=== PATIENT | male | born 1940 | race Caucasian/White ===

== ENCOUNTER 2018-01-13 07:04 | Day surgery (SDC) | payer MEDICARE ==
[~2018-01-13] VITALS: Ht 198.1 cm; Wt 62.7 kg
[2018-01-13] MEDS ORDERED: IRBE150 PO (07:34)
[2018-01-13] MEDS ORDERED: PRAV20 PO (07:35)
[2018-01-13] MEDS ORDERED: AMLO5 PO (07:35)
[2018-01-13] MEDS ORDERED: HYDCHL12.5 PO (07:35)
== END 2018-01-13 09:36 | disposition home or self-care (01) ==
LOC: ORSCSDS 07:04
PROVIDERS: Ophthalmology
PROC: 08RK3JZ Replacement of Left Lens with Synthetic Substitute, Percutaneous Approach (ICD-10-PCS; principal; 2018-01-13 08:30)
DX: H25.12 Age-related nuclear cataract, left eye (principal); I10 Essential (primary) hypertension; E78.00 Pure hypercholesterolemia, unspecified; Z79.899 Other long term (current) drug therapy; F17.210 Nicotine dependence, cigarettes, uncomplicated
CPT/HCPCS: J2250; J3010; J3301; J7040; V2632

== ENCOUNTER 2018-11-03 07:13 | Day surgery (SDC) | payer MEDICARE ==
[~2018-11-03] VITALS: Ht 167.6 cm; Wt 61.3 kg
[~2018-11-03 07:13] MED LIST: AMLO5 PO; HYDCHL12.5 PO; IRBE150 PO; PRAV20 PO
--- NOTE | 2018-11-03 09:26 | NUR ---
11/03/18 0926 Kristen Eisenberg CALLED X2 WILL BE HERE SHORTLY
== END 2018-11-03 09:15 | disposition home or self-care (01) ==
LOC: ORSCSDS 07:13
PROVIDERS: Ophthalmology
PROC: 08RJ3JZ Replacement of Right Lens with Synthetic Substitute, Percutaneous Approach (ICD-10-PCS; principal; 2018-11-03 08:30)
DX: H25.11 Age-related nuclear cataract, right eye (principal); I10 Essential (primary) hypertension; F17.210 Nicotine dependence, cigarettes, uncomplicated; Z79.899 Other long term (current) drug therapy
CPT/HCPCS: J2001; J2250; J3010; J3301; J7120; V2632

== ENCOUNTER → 2019-02-25 | Outpatient (CLI) | payer MEDICARE | END | disposition home or self-care (01) | LOC: LAB 14:23 → LAB SHORT 14:23 | DX: R30.0 Dysuria (principal) | CPT/HCPCS: 87077; 87086; 87186 ==

== ENCOUNTER 2023-06-14 10:33 | Emergency (ER) | payer MEDICARE ==
[~2023-06-14] VITALS: Ht 167.6 cm; Wt 54.4 kg
[2023-06-14] MEDS ORDERED: Aspir 8181 MG PO (10:44)
[2023-06-14 11:11] LABS: BASOPHILS ABSOLUTE AUTO 0.06 K/mm3 (0.00-0.23); BASOPHILS PERCENT AUTO 0 % (0-2); EOSINOPHILS ABSOLUTE AUTO 0.01 K/mm3 (0.00-0.68); EOSINOPHILS PERCENT AUTO 0 % (0-6); Hematocrit 40.3 % (37.0-53.0); Hemoglobin 13.8 g/dL (13.5-17.5); IMMATURE GRAN ABSOLUTE AUTO 0.11 K/mm3 (0.00-0.10); IMMATURE GRAN PERCENT AUTO 1 % (0-1); LYMPHOCYTES ABSOLUTE AUTO 0.49 K/mm3 (0.84-5.20); LYMPHOCYTES PERCENT AUTO 3 % (21-46); MONOCYTES ABSOLUTE AUTO 1.38 K/mm3 (0.16-1.47); MONOCYTES PERCENT AUTO 8 % (4-13); Mean Corpuscular HGB 34.2 pg (26.0-34.0); Mean Corpuscular HGB Conc 34.2 g/dL (31.5-36.5); Mean Corpuscular Volume 100 fL (80-100); NEUTROPHILS ABSOLUTE AUTO 15.45 K/mm3 (1.96-9.15); NEUTROPHILS PERCENT AUTO 88 % (41-73); Platelet Count 155 K/mm3 (150-400); RDW Standard Deviation 50.7 fL (35.1-46.3); Red Blood Cell Count 4.04 M/mm3 (4.30-5.90)
[2023-06-14 11:40] LABS: Albumin, Blood 3.3 g/dL (3.4-5.0); Albumin/Globulin Ratio 0.9 (0.8-1.8); Bilirubin, Total 1.1 mg/dL (0.1-1.0); Bun/Creatinine Ratio 18.4 (12.0-20.0); Creatinine, Blood 0.93 mg/dL (0.60-1.20); Globulin, Blood 3.8 g/dL (2.2-4.0); Potassium, Blood 3.6 mmol/L (3.5-5.5); Thyroid Stimulating Hormone 1.37 uIU/mL (0.360-4.800); Total Protein, Blood 7.1 g/dL (6.4-8.2)
[2023-06-14 11:55] LABS: Source, Urine Voided
[2023-06-14 12:01] LABS: Bilirubin, Urine Neg (Neg); Blood, Urine 4+ (Neg); Glucose Qualitative, Urine Neg (Neg); Ketones, Urine Neg (Neg); Leukocyte Esterase, Urine 3+ (Neg); Nitrite, Urine Pos (Neg); Protein, Urine 2+ (Neg); Urobilinogen, Urine NORM (Normal)
[2023-06-14 12:11] LABS: Appearance, Urine Cloudy (Clear); Color, Urine Yellow (P-Yellow)
[2023-06-14 12:12] LABS: Bacteria Many /hpf
[2023-06-14 12:13] LABS: Squamous Epithelial Cells Rare /hpf (Few)
[2023-06-14 12:46] LABS: Influenza A, PCR NEGATIVE (NEGATIVE); Influenza B, PCR NEGATIVE (NEGATIVE); Resp Syncytial Virus, PCR NEGATIVE (NEGATIVE); SARS-Cov-2 (COVID-19) PCR, MMC NEGATIVE (NEGATIVE)
[2023-06-14] MEDS ORDERED: Toprol Xl25 MG PO (13:32)
[2023-06-14] MEDS ORDERED: CEPH500 PO (13:32)
[2023-06-14 13:38] VITALS: BP 129/77
== END 2023-06-14 14:02 | disposition home or self-care (01) ==
LOC: ER 10:33
PROVIDERS: Emergency Medicine
DX: I48.91 Unspecified atrial fibrillation (principal); N39.0 Urinary tract infection, site not specified; I10 Essential (primary) hypertension; F17.200 Nicotine dependence, unspecified, uncomplicated; Z88.6 Allergy status to analgesic agent; Z88.7 Allergy status to serum and vaccine
CPT/HCPCS: 0241U; 70450; 80053; 81001; 84443; 84484; 85025; 93005; 93010; 96365; 96375; 99285-25; J0696

== ENCOUNTER 2025-01-04 13:28 | Inpatient (IN) | payer MEDICARE ==
[~2025-01-04] VITALS: Ht 170.2 cm; Wt 50.1 kg
[~2025-01-04 13:28] MED LIST changes: +Aspir 8181 MG PO; +CEPH500 PO; +Toprol Xl25 MG PO
[2025-01-04 14:24] LABS: Source, Urine Clean Catch
[2025-01-04 14:29] LABS: Bilirubin, Urine Neg (Neg); Color, Urine Yellow (P-Yellow); Glucose Qualitative, Urine 4+ (Neg); Ketones, Urine 2+ (Neg); Leukocyte Esterase, Urine 3+ (Neg); Protein, Urine 3+ (Neg); Specific Gravity, Urine 1.015 (1.003-1.022); Urobilinogen, Urine NORM (Normal)
[2025-01-04 14:37] LABS: BASOPHILS ABSOLUTE AUTO 0.08 K/mm3 (0.00-0.23); BASOPHILS PERCENT AUTO 1 % (0-2); EOSINOPHILS ABSOLUTE AUTO 0.02 K/mm3 (0.00-0.68); EOSINOPHILS PERCENT AUTO 0 % (0-6); Hematocrit 39.3 % (37.0-53.0); Hemoglobin 13.6 g/dL (13.5-17.5); IMMATURE GRAN ABSOLUTE AUTO 0.09 K/mm3 (0.00-0.10); IMMATURE GRAN PERCENT AUTO 1 % (0-1); LYMPHOCYTES ABSOLUTE AUTO 0.73 K/mm3 (0.84-5.20); LYMPHOCYTES PERCENT AUTO 6 % (21-46); MONOCYTES ABSOLUTE AUTO 0.82 K/mm3 (0.16-1.47); MONOCYTES PERCENT AUTO 7 % (4-13); Mean Corpuscular HGB Conc 34.6 g/dL (31.5-36.5); Mean Corpuscular Volume 99 fL (80-100); NEUTROPHILS ABSOLUTE AUTO 10.42 K/mm3 (1.96-9.15); NEUTROPHILS PERCENT AUTO 86 % (41-73); NRBC ABSOLUTE 0.00 K/mm3 (0.00-0.02); NRBC Auto 0.0 /100 WBC (0.0-0.2); Platelet Count 183 K/mm3 (150-400); RDW Coefficient Variation 13.9 % (11.7-14.2); RDW Standard Deviation 50.6 fL (35.1-46.3)
[2025-01-04 14:52] LABS: White Blood Cells, Urine 25-50 /hpf (0-5)
[2025-01-04 15:05] LABS: Alanine Aminotransfer (ALT/SGP 17.0 U/L (12-78); Albumin, Blood 3.3 g/dL (3.4-5.0); Albumin/Globulin Ratio 0.9 (0.8-1.8); Anion Gap 4.0 mmol/L (3-11); Aspartate Aminotrans (AST/SGOT 15.0 U/L (12-37); Bilirubin, Total 0.4 mg/dL (0.1-1.0); Blood Urea Nitrogen 14.0 mg/dL (8-24); CO2, Blood 32.0 mmol/L (21-32); Calcium, Blood 8.7 mg/dL (8.5-10.1); Chloride, Blood 104.0 mmol/L (98-108); Creatinine, Blood 0.86 mg/dL (0.60-1.20); Globulin, Blood 3.7 g/dL (2.2-4.0); Glucose, Blood 161.0 mg/dL (70-99); Potassium, Blood 3.7 mmol/L (3.5-5.5); Sodium, Blood 136.0 mmol/L (136-145); Total Protein, Blood 7.0 g/dL (6.4-8.2)
[2025-01-04] MEDS ORDERED: CefTRIAXone Sodium 1,000 MG in NS 100 ML IV ONE (15:15)
[2025-01-04] MEDS ORDERED: NS 1,000 ML IV SCH (15:15)
[2025-01-04] MEDS ORDERED: CEFP200 PO (16:33)
[2025-01-04] MEDS ORDERED: Toprol Xl50 MG PO (16:33)
[2025-01-04] MEDS ORDERED: Lidocaine 2% Jelly Uro-Jet TOP ONE (18:00)
[2025-01-04] MEDS ORDERED: Labetalol HCL 5 MG/ML 4ML Injection (Single Dose) IV PRN (18:55)
[2025-01-04] MEDS ORDERED: Ondansetron HCl 2 MG / ML 2ML Vial IV PRN (19:00)
[2025-01-04] MEDS ORDERED: Lactobacil 2-S.Thermo-Bifido 1 1 Cap PO SCH (21:00)
--- NOTE | 2025-01-04 21:30 | NUR ---
Assumed care Report received from Bernardino Erwin, ED RN. Patient arrived to unit w/ bruce catheter that was inserted by ED RN, patent and draining to gravity. There is a small amount of blood present around groin/tricia area from the catheter insertion. Came on a stretcher & slide transfer w/staff assist. AOx3-4. Conversating in clear complete sentences. Tele verified and on, SR 60s. Able to make needs known. Reviewed w/ patient instruction on operating the call light. Patient reports chronic vision loss. Denies pain, nausea, vomiting, shortness of breath. SCD's on, education provided w/ regard to SCDs. Questions answered to the best of my knowledge.
[2025-01-04 22:01] VITALS: BP 129/78
[2025-01-05] VITALS (7 sets, daily range): BP systolic 90–138; BP diastolic 48–89
[2025-01-05 07:25] LABS: Hematocrit 37.9 % (37.0-53.0); Hemoglobin 12.9 g/dL (13.5-17.5); Mean Corpuscular HGB Conc 34.0 g/dL (31.5-36.5); Mean Corpuscular Volume 101 fL (80-100); NRBC ABSOLUTE 0.00 K/mm3 (0.00-0.02); NRBC Auto 0.0 /100 WBC (0.0-0.2); Platelet Count 161 K/mm3 (150-400); RDW Coefficient Variation 14.2 % (11.7-14.2); RDW Standard Deviation 52.2 fL (35.1-46.3)
--- NOTE | 2025-01-05 07:29 | NUR ---
Shift Summary AOx3-4. Calls for needs appropriately. Had a 16Fr catheter placed in the ER for acute retention. This had leaked several times despite troubleshooting. Even checked balloon size, filled with 8cc, and added the remainder amount of 2cc for a total of 10cc into the balloon. Discussed with Charge Sha. Decision to remove bruce for a trial run to see if patient will void on own was persued, bruce removed at 0430. This was relayed to oncoming nursing. Tele: SR 60s. Also passed on to receiving RN RE patient requesting nicotine patch because is an everyday smoker. Mixed continence with urine, continent with bowel. Had multiple interruptions while asleep. LR @ 100 vis RFA IV. Bed alarm on.
[2025-01-05 07:46] LABS: Anion Gap 5.0 mmol/L (3-11); Blood Urea Nitrogen 15.0 mg/dL (8-24); CO2, Blood 31.0 mmol/L (21-32); Calcium, Blood 8.1 mg/dL (8.5-10.1); Chloride, Blood 108.0 mmol/L (98-108); Creatinine, Blood 0.84 mg/dL (0.60-1.20); Glucose, Blood 109.0 mg/dL (70-99); Potassium, Blood 4.0 mmol/L (3.5-5.5); Sodium, Blood 140.0 mmol/L (136-145)
[2025-01-05] MEDS ORDERED: Enoxaparin 40 MG/0.4 ML SYR SC SCH (09:00)
[2025-01-05] MEDS ORDERED: HydrALAZINE HCl 20 MG / ML 1ML Vial IV PRN (15:25)
[2025-01-05] MEDS ORDERED: CefTRIAXone Sodium 1,000 MG in NS 100 ML IV SCH (18:00)
--- NOTE | 2025-01-05 18:31 | NUR ---
SHIFT SUMMARY MR EDWARDS IS ABLE TO ANSWER ORIENTATION QUESTIONS. SOME [place], SOME REPETATIVE QUESTIONS AND NEED FOR REINFORCEMENT OF INFORMATION. AT BEDSIDE THROUGHOUT THE DAY. MR EDWARDS HAS TELEMETRY ON SR/SB 1ST DEGREE AVB. HR MOSTLY IN THE 50S AND 60S, DID DROP DOWN ON OCCASION TO MID 40S FOR WHICH HE WAS ASYMPTOMATIC. DR SANTACRUZ NOTIFIED. HE VOIDED SMALL AMOUNTS AT AT TIME AFTER HAVING THE KEARNEY REMOVED AT 0430 ON [employer]. BLADDER SCAN THIS MORNING WAS ONLY 150CC. PAUL PLACED HE IS A 1PPD SMOKER. HE IS NOT INTERESTED IN QUITTING INFORMATION. TOE NAILS ARE VERY LONG AND UNKEMPT AND COULD PREVENT HIM FROM WEARING CLOSED TOE SHOES. HE WALKED IN HIS ROOM WITH 1 PERSON ASSIST, GAIT BELT AND WALKER. HE IS STEADY STANDING, TIRES EASILY. BED LOW, BED ALARM ON. CALL LIGHT IN REACH.
[2025-01-06 03:23] VITALS: BP 134/75
--- NOTE | 2025-01-06 05:05 | NUR ---
Shift Summary AOx3-4, forgetful. Pleasant/cooperative. Uses urinal independently in bed, though may spill a little from time to time. 1p FWW to bathroom. Tele: SR 66 w/ 1st deg HB per tele monitor. LR infusing @ 100mLh. Denies pain. PIV RFA w/ 100mL/hour continuous. Urine is cranberry colored. Pt did get cath'd in ER and since then, patient has been having hematuria. Bladder scan performed, scan showed 54cc PVR at most. Call light and possessions near by. Bed in lowest position. SCD's on.
[2025-01-06 06:14] LABS: Hematocrit 34.8 % (37.0-53.0); Hemoglobin 11.9 g/dL (13.5-17.5); Mean Corpuscular HGB Conc 34.2 g/dL (31.5-36.5); Mean Corpuscular Volume 101 fL (80-100); NRBC ABSOLUTE 0.00 K/mm3 (0.00-0.02); NRBC Auto 0.0 /100 WBC (0.0-0.2); Platelet Count 138 K/mm3 (150-400); RDW Coefficient Variation 14.2 % (11.7-14.2); RDW Standard Deviation 51.8 fL (35.1-46.3)
[2025-01-06 06:39] LABS: Anion Gap 4.0 mmol/L (3-11); Blood Urea Nitrogen 13.0 mg/dL (8-24); CO2, Blood 31.0 mmol/L (21-32); Calcium, Blood 8.3 mg/dL (8.5-10.1); Chloride, Blood 106.0 mmol/L (98-108); Creatinine, Blood 0.79 mg/dL (0.60-1.20); Glucose, Blood 101.0 mg/dL (70-99); Potassium, Blood 3.8 mmol/L (3.5-5.5); Sodium, Blood 137.0 mmol/L (136-145)
[2025-01-06 07:42] VITALS: BP 164/69
[2025-01-06] MEDS ORDERED: Polyethylene Glycol 3350 17 gm PO SCH (09:00)
[2025-01-06 12:02] VITALS: BP 128/63
[2025-01-06 16:25] VITALS: BP 109/50
--- NOTE | 2025-01-06 18:38 | NUR ---
SHIFT SUMMARY PT A&OX4, VSS, RA SR 60S-70S 1ST DEGREE BLOCK ON TELE. LR CONTINUOUS AT 100/HR, ROCEPHEN GIVEN. PT INDEPENDENT WITH URINAL AT BEDSIDE, SOME SPILLS. 1PA TO CHAIR FOR MEALS. CLEAR YELLOW URINE. PT CALLS APPROPRIATLY, CALL LIGHT IN REACH.
[2025-01-07 00:04] VITALS: BP 133/64
[2025-01-07 04:11] VITALS: BP 115/57
--- NOTE | 2025-01-07 04:57 | NUR ---
SHIFT SUMMARY: Pt is admitted for UTI and is a full code. Is alert and able to make needs known. ADLs have been more towards the IND but did not get out of bed. Denies pain or discomfort when asked. Iv to right forearm has been running LR at 100ml/h during shift. Trip noted sinus in the 60s with a 1st deg and PACs with no other events.
[2025-01-07 07:42] VITALS: BP 129/65
[2025-01-07 11:27] VITALS: BP 150/74
[2025-01-07 15:12] VITALS: BP 155/76
--- NOTE | 2025-01-07 16:45 | NUR ---
SHIFT SUMMARY PT AOX4, COOPERATIVE, ABLE TO MAKE NEEDS KNOWN. PT IS 1 PERSON ASSIST TO BATHROOM/COMMODE FOR VOIDING. RUNNING LR AT 100ML CURRENTLY. PT TOLERATING IV AND PO MEDS. FAMILY IS BEDSIDE. EDUCATION PROVIDED THROUGHOUT SHIFT. BED ALARM ACTIVE. BED IN LOWEST POSITION, CALL LIGHT WITHIN REACH.
[2025-01-07] MEDS ORDERED: NS 250 ML IV PRN (18:20)
[2025-01-08 00:14] VITALS: BP 149/80
[2025-01-08 04:02] VITALS: BP 111/58
--- NOTE | 2025-01-08 06:29 | NUR ---
SHIFT SUMMARY: Pt is admitted for UTI and is a full code. Is alert and able to make needs known. ADLs have been more towards the IND but did not get out of bed. Denies pain or discomfort when asked. Iv to right forearm has been running LR at 100ml/h during shift. [place] noted sinus in the 70s with a 1st deg and PVCs with no other events. He raised concern towards the end of shift that he didn t sleep very well due to having to urinate every 20min. He also stated that there was a slight burning with some of the urinations. LN spoke with him about some of the more common signs of UTI. urine color through the night has changed from leo to almost clear.
[2025-01-08 07:51] VITALS: BP 124/62
[2025-01-08 11:21] VITALS: BP 160/77
[2025-01-08 15:14] VITALS: BP 155/74
[2025-01-08 19:14] VITALS: BP 120/65
[2025-01-09 00:11] VITALS: BP 131/53
[2025-01-09 04:16] VITALS: BP 131/60
--- NOTE | 2025-01-09 06:28 | NUR ---
SHIFT SUMMARY: Pt is admitted for UTI and is a full code. Is alert and able to make needs known. ADLs have been more towards the IND but did not get out of bed. Denies pain or discomfort when asked. Michaely noted sinus in the 70s with a 1st deg and PACs with no other events.
[2025-01-09 06:43] LABS: BASOPHILS ABSOLUTE AUTO 0.03 K/mm3 (0.00-0.23); BASOPHILS PERCENT AUTO 1 % (0-2); EOSINOPHILS ABSOLUTE AUTO 0.08 K/mm3 (0.00-0.68); EOSINOPHILS PERCENT AUTO 1 % (0-6); Hematocrit 36.4 % (37.0-53.0); Hemoglobin 12.5 g/dL (13.5-17.5); IMMATURE GRAN ABSOLUTE AUTO 0.03 K/mm3 (0.00-0.10); IMMATURE GRAN PERCENT AUTO 1 % (0-1); LYMPHOCYTES ABSOLUTE AUTO 0.62 K/mm3 (0.84-5.20); LYMPHOCYTES PERCENT AUTO 11 % (21-46); MONOCYTES ABSOLUTE AUTO 0.62 K/mm3 (0.16-1.47); MONOCYTES PERCENT AUTO 11 % (4-13); Mean Corpuscular HGB Conc 34.3 g/dL (31.5-36.5); Mean Corpuscular Volume 102 fL (80-100); NEUTROPHILS ABSOLUTE AUTO 4.38 K/mm3 (1.96-9.15); NEUTROPHILS PERCENT AUTO 76 % (41-73); NRBC ABSOLUTE 0.00 K/mm3 (0.00-0.02); NRBC Auto 0.0 /100 WBC (0.0-0.2); Platelet Count 145 K/mm3 (150-400); RDW Coefficient Variation 14.2 % (11.7-14.2); RDW Standard Deviation 53.2 fL (35.1-46.3)
[2025-01-09 07:08] LABS: Anion Gap 5.0 mmol/L (3-11); Blood Urea Nitrogen 18.0 mg/dL (8-24); CO2, Blood 32.0 mmol/L (21-32); Calcium, Blood 8.9 mg/dL (8.5-10.1); Chloride, Blood 106.0 mmol/L (98-108); Creatinine, Blood 0.82 mg/dL (0.60-1.20); Glucose, Blood 104.0 mg/dL (70-99); Magnesium, Blood 2.4 mg/dL (1.6-2.4); Potassium, Blood 4.0 mmol/L (3.5-5.5); Sodium, Blood 139.0 mmol/L (136-145); Thyroid Stimulating Hormone 2.21 uIU/mL (0.360-4.800)
[2025-01-09 07:40] VITALS: BP 154/66
[2025-01-09 11:29] VITALS: BP 147/65
[2025-01-09] MEDS ORDERED: TAMS.4ER PO (13:36)
[2025-01-09] MEDS ORDERED: Prinivil10 MG PO (13:36)
[2025-01-09] MEDS ORDERED: VISBIOME 112.51 EACH PO (13:37)
[2025-01-09] MEDS ORDERED: AUGMENTIN 500-1 EACH PO (13:37)
[2025-01-09] MEDS ORDERED: Aspirin325 MG PO (13:38)
[2025-01-09] MEDS ORDERED: METO25ER PO (13:40)
--- NOTE | 2025-01-09 13:58 | NUR ---
PT DISCHARGED HOME WITH HOME [facility]. NEW RX FAXED TO [facility] PER REQUEST. PT REMOVED IV - SITE APPEARS WNL. REVIEWED DISCHARGE PACKET AND NEW MEDICATIONS WITH PT AND PT SPOUSE AT BEDSIDE. PT ABLE TO STAND AND AMBULATE TO WITH SBA. PT WHEELED DOWN TO PRIVATE VEHICLE BY SENIOR ELECTRICAL ESTIMATOR.
== END 2025-01-09 13:59 | disposition home health service (06) | DRG 871 ==
LOC: ER 13:28 → MEDS 18:54
PROVIDERS: Emergency Medicine; Internal Medicine; Nurse Practitioner Acute Care; ADMIT Student in an Organized Health Care Education/Training Program
PROC: 0T9B70Z Drainage of Bladder with Drainage Device, Via Natural or Artificial Opening (ICD-10-PCS; principal; 2025-01-04)
DX: A41.59 Other Gram-negative sepsis (principal); E43 Unspecified severe protein-calorie malnutrition; N39.0 Urinary tract infection, site not specified; I48.19 Other persistent atrial fibrillation; R64 Cachexia; I10 Essential (primary) hypertension; F17.210 Nicotine dependence, cigarettes, uncomplicated; R33.8 Other retention of urine; I16.0 Hypertensive urgency; R73.9 Hyperglycemia, unspecified; I95.9 Hypotension, unspecified; G30.9 Alzheimer's disease, unspecified; B96.89 Other specified bacterial agents as the cause of diseases classified elsewhere; F02.80 Dementia in other diseases classified elsewhere, unspecified severity, without behavioral disturbance, psychotic disturbance, mood disturbance, and anxiety; R13.10 Dysphagia, unspecified; R53.1 Weakness; Z91.148 Patient's other noncompliance with medication regimen for other reason; Z88.7 Allergy status to serum and vaccine; Z79.82 Long term (current) use of aspirin; Z98.42 Cataract extraction status, left eye; Z88.8 Allergy status to other drugs, medicaments and biological substances; Z98.890 Other specified postprocedural states; Z68.21 Body mass index [BMI] 21.0-21.9, adult
CPT/HCPCS: 36415; 51702; 51798; 80048; 80053; 81001; 83036; 83735; 84443; 85025; 85027; 87077; 87086; 87186; 92610; 93005; 93010; 96365; 97110; 97116; 97162; 97165; 97530; 97535; 99285-25; A9270; J0696; J1650; J7030; J7120